=== PATIENT | female | born 1975 | race Caucasian/White ===

== ENCOUNTER 2018-05-16 06:54 | Emergency (ER) | payer MEDICAID ==
[~2018-05-16] VITALS: Ht 157.5 cm; Wt 55.9 kg
[~2018-05-16 06:54] MED LIST: ACET-812 PO; IBUP-1985 PO; LIDO700A32 TOP
[2018-05-16] MEDS ORDERED: PRED20TA PO (07:09)
[2018-05-16] MEDS ORDERED: EPIN0.3P8 IM (07:09)
[2018-05-16] MEDS ORDERED: dexamethasone 4mg tablet PO ONE (07:15)
[2018-05-16 07:24] VITALS: BP 103/63
== END 2018-05-16 07:28 | disposition home or self-care (01) ==
LOC: ER 06:54
DX: T63.461A Toxic effect of venom of wasps, accidental (unintentional), initial encounter (principal); Z79.899 Other long term (current) drug therapy; Y92.89 Other specified places as the place of occurrence of the external cause
CPT/HCPCS: 99283; J8540

== ENCOUNTER 2021-05-31 19:30 | Emergency (ER) | payer MEDICAID ==
[~2021-05-31] VITALS: Ht 160 cm; Wt 47.7 kg
[~2021-05-31 19:30] MED LIST changes: +EPIN0.3P8 IM
[2021-05-31 19:45] VITALS: BP 18/81
[2021-05-31] MEDS ORDERED: ketorolac tromethamine 15mg/ml inj. IM ONE (20:10)
[2021-05-31] MEDS ORDERED: DICL100G30 TOP (20:16)
--- NOTE | 2021-05-31 20:28 | NUR ---
PT SEEN AND DC'D BY PROVIDER
== END 2021-05-31 20:41 | disposition home or self-care (01) ==
LOC: ER 19:31
DX: M65.4 Radial styloid tenosynovitis [de Quervain] (principal); M25.532 Pain in left wrist; Z79.899 Other long term (current) drug therapy
CPT/HCPCS: 29125; 96372; 99283; J1885